=== PATIENT | female | born 1980 | race Caucasian/White ===

== ENCOUNTER 2024-09-03 14:57 | Emergency (ER) | payer BC ==
[~2024-09-03] VITALS: Ht 167.6 cm; Wt 92.0 kg
[2024-09-03] MEDS: LORazepam 1 MG tablet PO ONE (15:21)
[2024-09-03] MEDS ORDERED: LORA-268 PO (15:23)
[2024-09-03 16:12] VITALS: BP 103/65; PULSE 79; RESP 15; TEMP 97.9; O2SAT 99
== END 2024-09-03 16:15 | disposition home or self-care (01) ==
LOC: ER 14:58
DX: F41.9 Anxiety disorder, unspecified (principal); R19.7 Diarrhea, unspecified; Z88.0 Allergy status to penicillin
CPT/HCPCS: 99283